=== PATIENT | female | born 1995 | race Hispanic/Latino ===

== ENCOUNTER 2019-04-19 08:15 | Emergency (ER) | payer MEDICAID ==
[2019-04-19] MEDS ORDERED: Lidocaine 1% w/Epinephrine 1:100K 20 ML VIAL ONE (08:44)
== END 2019-04-19 09:32 | disposition home or self-care (01) ==
LOC: ERS 08:15
DX: L02.413 Cutaneous abscess of right upper limb (principal); L73.2 Hidradenitis suppurativa
CPT/HCPCS: 10060; J2001

== ENCOUNTER 2019-10-18 22:24 | Emergency (ER) | payer MEDICAID, OTHER ==
[2019-10-18 23:37] LABS: Pregnancy Test - Urine (BHCG) Negative (Negative); Pregu Control Background? CLEAR/WHITE (CLR/WHITE); Pregu Control Bar Appear? YES (CONTROL BAR); Specific Gravity 1.018 (1.002-1.036)
[2019-10-18 23:39] LABS: BHCG - Serum Negative (NEGATIVE); Pregs Control Background? CLEAR/WHITE (CLR/WHITE); Pregs Control Bar Appear? YES (CONTROL BAR)
[2019-10-19] MEDS ORDERED: Bacitracin 1 PK ONE (00:07)
== END 2019-10-19 00:13 | disposition home or self-care (01) ==
LOC: ERS 22:24
DX: S41.112A Laceration without foreign body of left upper arm, initial encounter (principal); R11.0 Nausea; W26.0XXA Contact with knife, initial encounter
CPT/HCPCS: 36415; 81025; 84703; 99281